=== PATIENT | female | born 1995 | race Caucasian/White ===

== ENCOUNTER 2021-01-31 13:41 | Emergency (ER) | payer MEDICAID ==
[~2021-01-31] VITALS: Ht 160 cm; Wt 60.0 kg
[2021-01-31] MEDS ORDERED: ONDANSETRON HCL 4 MG/2 ML VIAL IM ONE (15:30)
[2021-01-31] MEDS ORDERED: MORPHINE SULFATE 4 MG/ML SYRINGE IM ONE (15:30)
[2021-01-31 18:00] VITALS: BP 125/76
== END 2021-01-31 19:03 | disposition home or self-care (01) ==
LOC: EMS 13:50
DX: S82.832A Other fracture of upper and lower end of left fibula, initial encounter for closed fracture (principal); W01.0XXA Fall on same level from slipping, tripping and stumbling without subsequent striking against object, initial encounter; Y93.66 Activity, soccer; Y92.89 Other specified places as the place of occurrence of the external cause; Y99.8 Other external cause status
CPT/HCPCS: 29505; 73552; 73562; 73590; 96372; 99284; J2270; J2405

== ENCOUNTER 2021-03-05 19:41 | Emergency (ER) | payer MEDICAID ==
[~2021-03-05] VITALS: Ht 160 cm; Wt 59.1 kg
[2021-03-05 19:46] VITALS: BP 128/83
== END 2021-03-05 21:00 | disposition left against medical advice (07) ==
LOC: EMS 19:43
DX: M25.569 Pain in unspecified knee (principal); Z53.21 Procedure and treatment not carried out due to patient leaving prior to being seen by health care provider

== ENCOUNTER 2021-03-06 09:31 | Emergency (ER) | payer MEDICAID ==
[~2021-03-06] VITALS: Ht 160 cm; Wt 59.1 kg
[2021-03-06 09:34] VITALS: BP 118/71
[2021-03-06] MEDS ORDERED: IBUPROFEN 400 MG TABLET PO ONE (11:30)
[2021-03-06] MEDS: ACETAMINOPHEN 325 MG TABLET PO ONE ×2 (11:37→12:17)
== END 2021-03-06 13:22 | disposition home or self-care (01) ==
LOC: EMS 09:33
DX: S82.452A Displaced comminuted fracture of shaft of left fibula, initial encounter for closed fracture (principal); X50.1XXA Overexertion from prolonged static or awkward postures, initial encounter; Y93.66 Activity, soccer; Y92.89 Other specified places as the place of occurrence of the external cause; Y99.8 Other external cause status
CPT/HCPCS: 99283

== ENCOUNTER 2021-04-02 20:05 | Emergency (ER) | payer MEDICAID ==
[~2021-04-02] VITALS: Ht 160 cm; Wt 59.0 kg
[2021-04-02 20:30] VITALS: BP 116/72
== END 2021-04-02 21:10 | disposition home or self-care (01) ==
LOC: EMS 20:08
DX: G89.29 Other chronic pain (principal); M79.605 Pain in left leg
CPT/HCPCS: 99281; Z7502